=== PATIENT | female | born 1965 | race African-American/Black ===

== ENCOUNTER 2021-12-17 20:22 | Emergency (ER) | payer OTHER ==
[2021-12-17 20:50] VITALS: BP 148/71; PULSE 65; RESP 18; BMI 42.9
[2021-12-17] MEDS ORDERED: SODIUM CHLORIDE 1,000 ML IV STA (21:01)
[2021-12-17] MEDS ORDERED: KETOROLAC TROMETHAMINE 30 MG/1 ML VIAL IVPUSH ONE ×2 (21:01→22:05)
[2021-12-17] MEDS ORDERED: KETOROLAC TROMETHAMINE 15 MG/ML VIAL ONE ×2 (21:14→22:06)
[2021-12-17 21:25] LABS: HEMATOCRIT 29.9 % (32.4-45.2); HEMOGLOBIN 10.3 G/dL (10.7-15.3); MCH 29.9 pg (25.7-33.7); MCHC 34.5 g/dl (32.0-36.0); MEAN CELL VOLUME 86.3 fl (80-96); MEAN PLT VOLUME 8.1 fl (7.5-11.1); PLATELET COUNT 330.8 10^3/uL (134-434); RBC 3.46 10^6/uL (3.60-5.2); RDW 15.4 % (11.6-15.6); WHITE BLOOD COUNT 10.5 10^3/uL (4.0-10.8)
[2021-12-17 21:41] LABS: ALBUMIN 3.8 g/dl (3.4-5.0); BILIRUBIN,TOTAL 0.6 mg/dl (0.2-1); CALCIUM 9.3 mg/dl (8.5-10); CREATININE 1.5 mg/dl (0.55-1.3); TOT PROT 6.8 g/dl (6.4-8.2)
[2021-12-17 21:46] LABS: PLATELET ESTIMATE ADEQUATE
[2021-12-17 21:53] LABS: EPITHELIAL CELLS FEW /hpf
[2021-12-17] MEDS ORDERED: SODIUM CHLORIDE 500 ML IV STA (22:29)
[2021-12-17] MEDS ORDERED: ACETAMINOPHEN 1000 MG/100 ML BAG IVPB ONE (23:13)
[2021-12-17] MEDS ORDERED: ACETAMINOPHEN INJECTION 100 ML IVPB ONE (23:15)
[2021-12-18] MEDS ORDERED: CIPROFLOXACIN 500 MG TABLET (RESTRICTED TO ID) PO ONE (00:08)
[2021-12-18] MEDS ORDERED: CIPROFLOXACIN 250 MG TABLET (RESTRICTED TO ID) PO ONE (00:20)
== END 2021-12-18 00:46 | disposition home or self-care (01) ==
LOC: FER 20:22
PROC: 3E0333Z Introduction of Anti-inflammatory into Peripheral Vein, Percutaneous Approach (ICD-10-PCS; principal; 2021-12-17)
PROC: 3E0333Z Introduction of Anti-inflammatory into Peripheral Vein, Percutaneous Approach (ICD-10-PCS; 2021-12-17)
PROC: 3E0333Z Introduction of Anti-inflammatory into Peripheral Vein, Percutaneous Approach (ICD-10-PCS; 2021-12-17)
PROC: 3E0337Z Introduction of Electrolytic and Water Balance Substance into Peripheral Vein, Percutaneous Approach (ICD-10-PCS; 2021-12-17)
DX: N39.0 Urinary tract infection, site not specified (principal); R10.9 Unspecified abdominal pain
CPT/HCPCS: 36415; 74176-TC; 80053; 81003; 81015; 85027; 87086; 87186; 99284-25

== ENCOUNTER 2022-11-14 10:16 | Emergency (ER) | payer OTHER ==
[2022-11-14 10:21] VITALS: BP 153/71; PULSE 63; RESP 18; TEMP 98.1; BMI 41.9
[2022-11-14] MEDS ORDERED: KETOROLAC TROMETHAMINE 30 MG/1 ML VIAL IM ONE (10:46)
[2022-11-14] MEDS ORDERED: KETOROLAC TROMETHAMINE 30 MG/1 ML VIAL ONE (11:04)
== END 2022-11-14 12:12 | disposition home or self-care (01) ==
LOC: JERFT 10:16
PROC: 3E0233Z Introduction of Anti-inflammatory into Muscle, Percutaneous Approach (ICD-10-PCS; principal; 2022-11-14)
DX: M25.562 Pain in left knee (principal); M25.462 Effusion, left knee
CPT/HCPCS: 73560-TC-LT-FY; 99284-25